=== PATIENT | female | born 1930 | race Hispanic/Latino ===

== ENCOUNTER 2018-08-22 06:26 | Emergency (ER) | payer MEDICARE ==
[2018-08-22] MEDS ORDERED: TETANUS & DIPHTHERIA TOX,ADULT 0.5 ML VIAL ONE (07:19)
[2018-08-22] MEDS ORDERED: ACETAMINOPHEN 500 MG TAB ONE (07:37)
--- NOTE | 2018-08-22 08:13 | ER ---
Nurse's Notes [facility] Name: Frida Acosta Age: 88 yrs Sex: Female : 1930 Arrival Date: 08/22/2018 Time: 06:28 Bed 19 Private MD: Diagnosis: Skin tear to left hand;Pain in left upper arm;Pain in left shoulder;Fall on same level from slipping, tripping and stumbling Presentation: 08/22 06:35 Presenting complaint: Family said "She got out of bed but slipped and fell to the floor cc3 and sustained laceration to the back of her left hand". Transition of care: patient was not received from another setting of care. Complicating Factors: There are no complicating factors for this patient. Onset of symptoms was August 22, 2018. Risk Assessment: Do you want to hurt yourself or someone else? Patient reports no desire to harm self or others. Initial Sepsis Screen: Does the patient meet any 2 criteria? No. Patient's initial sepsis screen is negative. Does the patient have a suspected source of infection? No. Patient's initial sepsis screen is negative. Care prior to arrival: None. 06:35 Method Of Arrival: Ambulatory cc3 06:35 Acuity: REBA 3 cc3 Historical: - Allergies: 06:54 big Aspirin; cc3 - PMHx: 06:54 Hypertension; breast cancer; cc3 - PSHx: 06:54 bilateral knee surgeries; cc3 - Immunization history:: Adult Immunizations up to date. - Social history:: Smoking status: Patient/guardian denies using tobacco, never smoked. - Ebola Screening: : No symptoms or risks identified at this time. Screenin:57 Abuse screen: Denies threats or abuse. Denies injuries from another. Nutritional cc3 screening: No deficits noted. Tuberculosis screening: No symptoms or risk factors identified. Fall Risk Ambulatory Aid- None/Bed Rest/Nurse Assist (0 pts). Gait- Normal/Bed Rest/Wheelchair (0 pts) Mental Status- Oriented to own ability (0 pts). Assessment: 07:00 General: Appears in no apparent distress. comfortable, Behavior is calm, cooperative. em Pain: Complains of pain in anterior aspect of left shoulder Pain currently is 10 out of 10 on a pain scale. Neuro: Level of Consciousness is awake, alert, obeys commands, Oriented to person, place, time, situation. Cardiovascular: Capillary refill < 3 seconds Patient's skin is warm and dry. Respiratory: Airway is patent Respiratory effort is even, unlabored, Respiratory pattern is regular, symmetrical. Derm: Skin is intact, is fragile, is thin, Skin is pink, warm \\T\\ dry. Musculoskeletal: Circulation, motion, and sensation intact. Capillary refill < 3 seconds, Range of motion: limited in left shoulder Swelling absent. Injury Description: Laceration sustained to dorsum of left hand is clean, contaminated, 2.6 to 7.5 cm long, not bleeding, was sustained 1-2 hours ago. is bleeding a small amount. Vital Signs: 06:35 BP 159 / 75; Pulse 78; Resp 20 S; Temp 98(O); Pulse Ox 98% on R/A; Weight 72.57 kg (R); cc3 Height 5 ft. 2 in. (157.48 cm) (R); 07:41 BP 107 / 85; Pulse 65; Resp 18; Pulse Ox 100% on R/A; Pain 10/10; em 06:35 Body Mass Index 29.26 (72.57 kg, 157.48 cm) cc3 ED Course: 06:28 Patient arrived in ED. ds1 06:40 [facility] Redmond [facility]-C [facility]. kb 06:40 Lewis Neri MD is Attending Physician. kb 06:52 Triage completed. cc3 06:57 Patient has correct armband on for positive identification. Bed in low position. Call cc3 light in reach. Side rails up X 1. Pulse ox on. NIBP on. 07:00 Report given to BEST Rosario. cc3 07:04 Abraham Malagon LVN is Primary Nurse. em 07:39 X-ray completed. Portable x-ray completed in exam room. Patient tolerated procedure tm4 well. 07:39 Humerus Left XRAY In Process Unspecified. EDMS 07:39 Clavicle Left XRAY In Process Unspecified. EDMS 08:21 No provider procedures requiring assistance completed. Patient did not have IV access em during this emergency room visit. 08:22 Sling applied to left arm. em Administered Medications: 07:20 Drug: Tetanus-Diphtheria Toxoid Adult 0.5 ml {Instructional Consultant: [employer]. Exp: em 05/08/2020. Lot #: [id number]. } Route: IM; Site: right deltoid; 08:20 Follow up: Response: No adverse reaction em 07:35 Drug: Tylenol 1000 mg Route: PO; em 08:20 Follow up: Response: No adverse reaction; Pain is decreased em Outcome: 08:09 Discharge ordered by MD. sanchez 08:21 Discharged to home ambulatory, with family. em 08:21 Condition: good 08:21 Discharge instructions given to patient, family, Instructed on discharge instructions, follow up and referral plans. Demonstrated understanding of instructions, follow-up care. 08:22 Patient left the ED. em Signatures: Dispatcher [employer] EDTerri Escamilla, STAN-C STUDENT LIFE COORDINATOR-CkSvetlana Ashby tm4 Abraham Malagon LVN DIE SINKER APPRENTICE Lindsay Alvarez ds1 Geri Saba cc3 Corrections: (The following items were deleted from the chart) 06:56 06:35 Presenting complaint: Family said "She got out of bed but slipped and fell to the cc3 floor" cc3
--- NOTE | 2018-08-22 08:14 | EDPHYS ---
Physician Documentation [facility] Name: Frida Acosta Age: 88 yrs Sex: Female : 1930 Arrival Date: 08/22/2018 Time: 06:28 Bed 19 Private MD: ED Physician Lewis Neri HPI: 08/22 07:08 This 88 yrs old Female presents to ER via Ambulatory with complaints of kb Laceration To Hand. 07:08 The patient has a laceration related to: falling getting out of bed and fell, occurred kb at home, and there are no complicating factors. The injury was accidental. The laceration(s) is(are) located on the dorsum of left hand. Onset: The symptoms/episode began/occurred this morning. Associated signs and symptoms: Pertinent positives: heavy bleeding, skin tear, Pertinent negatives: deformity, dizziness, loss of consciousness, numbness distal to injury, suspected foreign body. The patient has not experienced similar symptoms in the past. The patient has not recently seen a physician. Family reports pt's bed is too high so they put a box for her to stand on to get into the bed. States she was getting out of bed this morning and fell off of the box causing skin tear to top of left hand. . Historical: - Allergies: 06:54 big Aspirin; cc3 - PMHx: 06:54 Hypertension; breast cancer; cc3 - PSHx: 06:54 bilateral knee surgeries; cc3 - Immunization history:: Adult Immunizations up to date. - Social history:: Smoking status: Patient/guardian denies using tobacco, never smoked. - Ebola Screening: : No symptoms or risks identified at this time. ROS: 07:05 Constitutional: Negative for fever, chills, and weight loss, Cardiovascular: Negative kb for chest pain, palpitations, and edema, Respiratory: Negative for shortness of breath, cough, wheezing, and pleuritic chest pain, Abdomen/GI: Negative for abdominal pain, nausea, vomiting, diarrhea, and constipation, Neuro: Negative for headache, weakness, numbness, tingling, and seizure. 07:05 MS/extremity: Positive for pain, of the anterior aspect of left shoulder. 07:05 Skin: Positive for ecchymosis, hematoma, of the dorsum of left hand, skin tear. Exam: 07:07 Constitutional: This is a well developed, well nourished patient who is awake, alert, kb and in no acute distress. Head/Face: Normocephalic, atraumatic. Chest/axilla: Normal chest wall appearance and motion. Nontender with no deformity. No lesions are appreciated. Cardiovascular: Regular rate and rhythm with a normal S1 and S2. No gallops, murmurs, or rubs. Normal PMI, no JVD. No pulse deficits. Respiratory: Lungs have equal breath sounds bilaterally, clear to auscultation and percussion. No rales, rhonchi or wheezes noted. No increased work of breathing, no retractions or nasal flaring. Abdomen/GI: Soft, non-tender, with normal bowel sounds. No distension or tympany. No guarding or rebound. No evidence of tenderness throughout. MS/ Extremity: Pulses equal, no cyanosis. Neurovascular intact. Full, normal range of motion. Neuro: Awake and alert, GCS 15, oriented to person, place, time, and situation. Cranial nerves II-XII grossly intact. Motor strength 5/5 in all extremities. Sensory grossly intact. Cerebellar exam normal. Normal gait. 07:07 Skin: injury, 3cm skin tear with hematoma to top of left hand. Vital Signs: 06:35 BP 159 / 75; Pulse 78; Resp 20 S; Temp 98(O); Pulse Ox 98% on R/A; Weight 72.57 kg (R); cc3 Height 5 ft. 2 in. (157.48 cm) (R); 07:41 BP 107 / 85; Pulse 65; Resp 18; Pulse Ox 100% on R/A; Pain 10/10; em 06:35 Body Mass Index 29.26 (72.57 kg, 157.48 cm) cc3 MDM: 06:40 Patient medically screened. kb 07:06 Data reviewed: vital signs, nurses notes. Data interpreted: Pulse oximetry: on room air kb is 98 %. Interpretation: normal. ED course: On initial exam, pt has full ROM of left arm and shoulder. Now pt reports she cannot raise left arm due to shoulder pain. Tenderness to clavicle. Will x-ray. 08:09 Counseling: I had a detailed discussion with the patient and/or guardian regarding: the kb historical points, exam findings, and any diagnostic results supporting the discharge/admit diagnosis, radiology results, the need for outpatient follow up, a family practitioner, to return to the emergency department if symptoms worsen or persist or if there are any questions or concerns that arise at home. 08:14 Test interpretation: by ED physician or midlevel provider: plain radiologic studies, kb neg. 08/22 07:03 Order name: Humerus Left XRAY; Complete Time: 09:48 kb 08/22 07:03 Order name: Clavicle Left XRAY; Complete Time: 09:48 kb 08/22 06:42 Order name: Wound Care: clean and apply steristrips to skin tear; Complete Time: 07:20 kb 08/22 08:00 Order name: Sling; Complete Time: 08:21 kb Administered Medications: 07:20 Drug: Tetanus-Diphtheria Toxoid Adult 0.5 ml {Special Effects Artist: [employer]. Exp: em 05/08/2020. Lot #: [id number]. } Route: IM; Site: right deltoid; 08:20 Follow up: Response: No adverse reaction em 07:35 Drug: Tylenol 1000 mg Route: PO; em 08:20 Follow up: Response: No adverse reaction; Pain is decreased em Disposition: 08/22/18 08:09 Discharged to Home. Impression: Skin tear to left hand, Pain in left upper arm, Pain in left shoulder, Fall on same level from slipping, tripping and stumbling. - Condition is Stable. - Discharge Instructions: Musculoskeletal Pain, Shoulder Pain, [id number], Skin Tear Care, [id number], Fall Prevention in the Home, [id number]. - Medication Reconciliation Form, Thank You Letter, Antibiotic Education, Prescription Opioid Use form. - Follow up: Emergency Department; When: As needed; Reason: Worsening of condition. Follow up: Private Physician; When: 2 - 3 days; Reason: Recheck today's complaints, Continuance of care, Re-evaluation by your physician. Signatures: Dispatcher [employer] Terri Barney FNP-C FNP-Abraham Brock, BEST PROFESSIONAL DEVELOPMENT INSTRUCTOR em Geri Saba cc3 Corrections: (The following items were deleted from the chart) 08:22 08:09 08/22/2018 08:09 Discharged to Home. Impression: Skin tear to left hand; Pain in em left upper arm; Pain in left shoulder; Fall on same level from slipping, tripping and stumbling. Condition is Stable. Forms are Medication Reconciliation Form, Thank You Letter, Antibiotic Education, Prescription Opioid Use. Follow up: Emergency Department; When: As needed; Reason: Worsening of condition. Follow up: Private Physician; When: 2 - 3 days; Reason: Recheck today's complaints, Continuance of care, Re-evaluation by your physician. kb
--- NOTE | 2018-08-22 08:59 | RAD REPORT ---
EXAM DESCRIPTION: RAD - Clavicle Left - 08/22/2018 7:39 am CLINICAL HISTORY: Slip and fall, left clavicle and shoulder pain COMPARISON: None. FINDINGS: No fracture is identified and no AC joint or SC joint dislocation. Degenerative changes ar e present at the AC joint with capsular hypertrophy superiorly and capsular calcification. Contusion or edema changes are present in the soft tissues superior and lateral to the shoulder joint. No fract ure or dislocation of the proximal humerus seen. No suspicious finding in the visualized upper chest. 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 No clavicle fracture. Contusion or edema changes along the superior and lateral margin of the shoulder joint.
--- NOTE | 2018-08-22 09:01 | RAD REPORT ---
EXAM DESCRIPTION: RAD - Humerus Left - 08/22/2018 7:39 am CLINICAL HISTORY: Fall, left arm pain COMPARISON: None. FINDINGS: No fracture is identified. There is no dislocation or periosteal reaction noted. No acute or destructive bone process. AC joint degenerative changes are present. No inferiorly directed AC elizabeth int spurring. Contusion or edema changes are seen in the soft tissues lateral and superior to the avis ulder joint. No foreign body. IMPRESSION: No fracture or dislocation of the left humerus. AC joint degenerative change. Contusion and edema changes superior and lateral to the shoulder joint.
== END 2018-08-22 08:22 | disposition home or self-care (01) ==
LOC: EDBD 06:26 → ER 06:26
DX: S61.412A Laceration without foreign body of left hand, initial encounter (principal); W06.XXXA Fall from bed, initial encounter; Y92.009 Unspecified place in unspecified non-institutional (private) residence as the place of occurrence of the external cause; M25.512 Pain in left shoulder; Z23 Encounter for immunization; I10 Essential (primary) hypertension; C50.919 Malignant neoplasm of unspecified site of unspecified female breast
CPT/HCPCS: 90471; 90714; 99284